=== PATIENT | male | born 1995 | race Caucasian/White ===

== ENCOUNTER 2017-12-17 12:24 | Emergency (ER) | payer BC ==
[2017-12-17 12:53] VITALS: TEMP 99
[2017-12-17] MEDS ORDERED: SODIUM CHLORIDE 0.9% 1000ML 1,000 ML IVS ONE (13:18)
[2017-12-17] MEDS ORDERED: SODIUM CHLORIDE 0.9% (FLUSH) 10 ML SYG IV PRN (13:18)
[2017-12-17] MEDS ORDERED: MECLIZINE HCL 12.5 MG TAB PO ONE (13:19)
--- NOTE | 2017-12-17 13:21 | ED.PDOC ---
History of Present Illness - General Chief Complaint: Syncope/Near Syncope Stated Complaint: DIZZINESS Time Seen by Provider: 12/17/17 12:35 Source: patient - History of Present Illness Initial Comments: PT REPORTS SUDDEN ONSET OF DIZZINESS AND NEAR SYNCOPE WHILE ON A LADDER TODAY. PT ALSO REPORTS SYMPTOMS OF VERTIGO WITH LOOKING UP. PT DENIES PREVIOUS SIMILAR SYMPTOMS AND STATES THAT HE HAS BEEN VOMITING EVERYDAY FOR THE PAST YEAR. PT ALSO REPORTS INTERMITTENT RUQ ABDOMINAL PAIN. Timing/Duration: 1-3 hours Severity: moderate Improving Factors: immobilization Worsening Factors: movement Allergies/Adverse Reactions: Allergies NO KNOWN ALLERGY Allergy (Verified 12/17/17 12:47) Home Medications: Ambulatory Orders Acetaminophen W/ Codeine [Acetaminophen/Codeine 300-30 mg] 1 tab PO Q6-8H PRN # 30 tab 10/05/15 Meclizine HCl [Meclizine 25] 50 mg PO Q6HR PRN 5 Days #30 tab 12/17/17 Ondansetron [Zofran Odt] 8 mg PO TID PRN #20 tab 12/17/17 Sulfamethoxazole-Trimethoprim [Bactrim Ds 800-160 mg] 1 tab PO BID 5 Days #10 tab 12/17/17 Review of Systems - Review of Systems Constitutional: Denies: chills, fever EENTM: Denies: nose congestion, throat pain Respiratory: Denies: cough, short of breath Cardiology: Denies: chest pain, palpitations Gastrointestinal/Abdominal: States: see HPI, nausea, vomiting. Denies: diarrhea Genitourinary: Denies: dysuria, frequency Musculoskeletal: Denies: joint pain, joint swelling Skin: Denies: dryness, lesions Neurological: Denies: headache, numbness Endocrine: States: no symptoms reported Hematologic/Lymphatic: States: no symptoms reported Past Medical History (General) - Patient Medical History Hx Seizures: No Hx Stroke: No Hx Dementia: No Hx Asthma: No Hx of COPD: No Hx Cardiac Disorders: No Hx Congestive Heart Failure: No Hx Pacemaker: No Hx Hypertension: No Hx Thyroid Disease: No Hx Diabetes: No Hx Gastroesophageal Reflux: No Hx Renal Disease: No Hx Cancer: No Hx of HIV: No Hx Hepatitis C: No Hx MRSA: No Surgical History: other - Vaccination History Hx Tetanus, Diphtheria Vaccination: Yes Hx Influenza Vaccination: No Hx Pneumococcal Vaccination: No - Social History Hx Tobacco Use: Yes Hx Alcohol Use: No Hx Substance Use: No Hx Substance Use Treatment: No Hx Depression: No - Female History Patient : No Family Medical History - Family History Mother Family History: Unknown Physical Exam - Physical Exam General Appearance: Alert, Comfortable, No apparent distress, Well Developed, Well Groomed, Well Hydrated, Well Nourished Ears, Nose, Throat: hearing grossly normal Neck: normal inspection Respiratory: lungs clear, normal breath sounds, no respiratory distress, no accessory muscle use Cardiovascular/Chest: regular rate, rhythm, no edema Gastrointestinal/Abdominal: soft, tenderness - RUQ Back Exam: normal inspection Extremity: normal inspection Neurologic: alert, normal mood/affect, oriented x 3 Skin Exam: normal color, warm/dry Progress - Progress Progress: 12/17/17 14:28 PT RESTING COMFORTABLY, REPORTS SIGNIFICANT IMPROVEMENT IN SYMPTOMS AFTER MECLIZINE AND FLUIDS. LABS DISCUSSED. RECOMMEND FOLLOW UP WITH PCP TO FURTHER EVALUATE PTS DAILY VOMITING, AND ABDOMINAL PAIN. - Results/Orders Results/Orders: 12/17/17 12:54 URINE CULTURE W/COLONY COUNT Stat 12/17/17 13:18 IV Care:Saline Lock per Protoc QSHIFT Sodium Chloride 0.9% (Flush) [Saline Flush Syringe] 10 ml IV PRN PRN URINALYSIS Stat 12/17/17 13:30 EKG STAT Laboratory Results - last 24 hr 12/17/17 12/17/17 12/17/17 12:36 12:36 12:36 WBC RBC Hgb Hct MCV MCH MCHC RDW Plt Count MPV Absolute Neuts (auto) Absolute Lymphs (auto) Absolute Monos (auto) Absolute Eos (auto) Absolute Basos (auto) Neutrophils % Lymphocytes % Monocytes % Eosinophils % Basophils % Sodium Cancelled Potassium Cancelled Chloride Cancelled Carbon Dioxide Cancelled Anion Gap BUN Cancelled Creatinine Cancelled BUN/Creatinine Ratio POC Glucose Random Glucose Cancelled Serum Osmolality Calcium Cancelled Phosphorus Cancelled Magnesium Cancelled Ferritin Cancelled Total Bilirubin Direct Bilirubin Indirect Bilirubin AST ALT Alkaline Phosphatase Serum Total Protein Albumin Cancelled Lipase PTH Biointact w/o Ca Cancelled Urine Color Urine Appearance Urine pH Ur Specific [place] Urine Protein Urine Glucose (UA) Urine Ketones Urine Blood Urine Nitrite Urine Bilirubin Urine Urobilinogen Ur Leukocyte Esterase Urine RBC Urine WBC Ur Epithelial Cells Urine Bacteria 12/17/17 12/17/17 12/17/17 12:54 13:16 13:16 WBC 11.9 H RBC 5.29 Hgb 17.3 Hct 49.2 MCV 92.9 MCH 32.7 H MCHC 35.2 RDW 12.3 Plt Count 277 MPV 7.8 Absolute Neuts (auto) 9.70 H Absolute Lymphs (auto) 1.60 Absolute Monos (auto) 0.60 Absolute Eos (auto) 0.10 Absolute Basos (auto) 0.10 Neutrophils % 81.2 H Lymphocytes % 13.0 L Monocytes % 4.8 Eosinophils % 0.5 L Basophils % 0.5 Sodium 138 Potassium 3.3 L Chloride 102 Carbon Dioxide 26 Anion Gap 13.3 BUN 12 Creatinine 0.99 BUN/Creatinine Ratio 12.1 POC Glucose Random Glucose 91 Serum Osmolality 275.0 Calcium 9.8 Phosphorus Magnesium Ferritin Total Bilirubin 0.9 Direct Bilirubin 0.2 Indirect Bilirubin 0.7 AST 21 ALT 28 Alkaline Phosphatase 51 Serum Total Protein 8.5 H Albumin 5.1 Lipase 31 PTH Biointact w/o Ca Urine Color Yellow Urine Appearance Clear Urine pH 5.5 Ur Specific [place] 1.025 Urine Protein 30 Urine Glucose (UA) Negative Urine Ketones 40 H Urine Blood Negative Urine Nitrite Negative Urine Bilirubin Small H Urine Urobilinogen 0.2 Ur Leukocyte Esterase Small H Urine RBC 0 Urine WBC 5-10 H Ur Epithelial Cells 5-10 Urine Bacteria Rare 12/17/17 13:17 WBC RBC Hgb Hct MCV MCH MCHC RDW Plt Count MPV Absolute Neuts (auto) Absolute Lymphs (auto) Absolute Monos (auto) Absolute Eos (auto) Absolute Basos (auto) Neutrophils % Lymphocytes % Monocytes % Eosinophils % Basophils % Sodium Potassium Chloride Carbon Dioxide Anion Gap BUN Creatinine BUN/Creatinine Ratio POC Glucose 90 Random Glucose Serum Osmolality Calcium Phosphorus Magnesium Ferritin Total Bilirubin Direct Bilirubin Indirect Bilirubin AST ALT Alkaline Phosphatase Serum Total Protein Albumin Lipase PTH Biointact w/o Ca Urine Color Urine Appearance Urine pH Ur Specific [place] Urine Protein Urine Glucose (UA) Urine Ketones Urine Blood Urine Nitrite Urine Bilirubin Urine Urobilinogen Ur Leukocyte Esterase Urine RBC Urine WBC Ur Epithelial Cells Urine Bacteria - EKG/XRAY/CT EKG: Sinus - @80BPM, NL INTERVALS, NL AXIS, no ST T wave changes - NO OLD FOR COMPARISON Departure - Departure Clinical Impression: Near syncope, Vertigo, UTI (urinary tract infection) Time of Disposition: 14:31 Disposition: Discharge to Home or Self Care Condition: Good Departure Forms: ED Discharge - Pt. Copy, Patient Portal Self Enrollment Instructions: DI for Urinary Tract Infection (UTI), DI for Benign Paroxysmal Positional Vertigo Diet: bland diet Referrals: Otsi Recinos MD [Primary Care Provider] - 1-5 Days Prescriptions: Meclizine HCl [Meclizine 25] 50 mg PO Q6HR PRN 5 Days #30 tab PRN Reason: Dizziness Ondansetron [Zofran Odt] 8 mg PO TID PRN #20 tab PRN Reason: Nausea/Vomiting Sulfamethoxazole-Trimethoprim [Bactrim Ds 800-160 mg] 1 tab PO BID 5 Days #10 tab Home Medications: Ambulatory Orders Acetaminophen W/ Codeine [Acetaminophen/Codeine 300-30 mg] 1 tab PO Q6-8H PRN # 30 tab 10/05/15 Meclizine HCl [Meclizine 25] 50 mg PO Q6HR PRN 5 Days #30 tab 12/17/17 Ondansetron [Zofran Odt] 8 mg PO TID PRN #20 tab 12/17/17 Sulfamethoxazole-Trimethoprim [Bactrim Ds 800-160 mg] 1 tab PO BID 5 Days #10 tab 12/17/17
[2017-12-17 15:09] VITALS: BP 150/78; O2SAT 95
== END 2017-12-17 14:40 | disposition home or self-care (01) ==
LOC: ER 12:24
DX: N39.0 Urinary tract infection, site not specified (principal); R42 Dizziness and giddiness; R55 Syncope and collapse
CPT/HCPCS: 36415; 36416; 80048; 80076; 81001; 82948; 83690; 85025; 87086; 93005; J7030

== ENCOUNTER 2019-10-28 17:36 | Emergency (ER) | payer SELFPAY ==
[2019-10-28 17:57] VITALS: TEMP 97.7
[2019-10-28] MEDS ORDERED: ONDANSETRON INJ 4 MG/2 ML VIAL IV ONE (17:58)
[2019-10-28] MEDS ORDERED: MORPHINE SULFATE INJ 10 MG/ML VIAL IV ONE ×2 (17:58→18:59)
[2019-10-28] MEDS ORDERED: SODIUM CHLORIDE 0.9% 1000ML 1,000 ML IVS ONE (17:58)
--- NOTE | 2019-10-28 18:03 | ED.PDOC ---
History of Present Illness - General Chief Complaint: Trauma Stated Complaint: Fell playing football, Sternum and L ankle pain Time Seen by Provider: 10/28/19 17:56 Additional Information: Patient with chief complaint of sternal pain and left ankle pain after fall immediately prior to arrival. Patient was playing flag football and twisted his ankle. He felt a pop and fell to the ground landing on his left shoulder. Patient denies any shoulder or clavicle pain but indicates that he immediately felt a sharp pain in the central upper aspect of his chest over his sternum. Patient indicates the pain is approximately 8/10. Patient did not hit his head and denies loss of consciousness, neck pain, back pain, abdominal pain. He is nauseated presently. Patient is otherwise asymptomatic. - History of Present Illness Allergies/Adverse Reactions: Allergies Bee Venom Adverse Reaction (Verified 10/28/19 17:46) Home Medications: Ambulatory Orders Acetaminophen W/ Codeine [Tylenol W/ CODEINE #3] 2 ea PO Q6H PRN #30 10/28/19 Ibuprofen [Motrin] 800 mg PO TID PRN #30 tab 10/28/19 Review of Systems - Review of Systems Constitutional: States: no symptoms reported EENTM: States: no symptoms reported Respiratory: States: no symptoms reported. Denies: cough, orthopnea, short of breath Cardiology: States: no symptoms reported. Denies: chest pain, palpitations Gastrointestinal/Abdominal: States: no symptoms reported, nausea. Denies: abdominal pain Genitourinary: States: no symptoms reported Musculoskeletal: States: see HPI Skin: States: no symptoms reported Neurological: States: no symptoms reported Endocrine: States: no symptoms reported All other Systems: Reviewed and Negative Past Medical History (General) - Patient Medical History Hx Seizures: No Hx Stroke: No Hx Dementia: No Hx Asthma: No Hx of COPD: No Hx Cardiac Disorders: No Hx Congestive Heart Failure: No Hx Pacemaker: No Hx Hypertension: No Hx Thyroid Disease: No Hx Diabetes: No Hx Gastroesophageal Reflux: No Hx Renal Disease: No Hx Cancer: No Hx of HIV: No Hx Hepatitis C: No Hx MRSA: No Surgical History: other - Vaccination History Hx Tetanus, Diphtheria Vaccination: Yes Hx Influenza Vaccination: No Hx Pneumococcal Vaccination: No - Social History Hx Tobacco Use: Yes Hx Alcohol Use: Yes Hx Substance Use: No Hx Substance Use Treatment: No Hx Depression: No - Female History Patient is a Female of Child Bearing Age (10 -59 yrs old): No Patient : No Family Medical History - Family History Mother Family History: Unknown Hx Cardiac Disease: Yes Grandparents Living Status: Hx Family Cancer: Yes Physical Exam - Physical Exam General Appearance: Alert, Anxious, Obvious distress - mild Head Injury: no evidence of injury - scalp is nontender without hematoma Eye Exam: bilateral normal ENT Exam: no evidence of ENT injury, no dental injury Neck Exam: non-tender, full range of motion, normal alignment, normal inspection, other - full nontender range of motion Cardiovascular/Respiratory: no M/R/G, tachycardia, other - normal inspection chest wall. Moderate reproducible tenderness to palpation over the sternum at approximately T2 Gastrointestinal/Abdominal: normal bowel sounds, non tender, soft, no organomegaly Back Exam: normal inspection, no CVA tenderness Extremity Exam: other - left ankle with moderate tenderness to palpation and mild to moderate edema over the lateral malleolus. Negative ecchymoses. Limited range of motion due to pain. Neurologic: no motor/sensory deficits, normal mood/affect Skin Exam: normal color, warm/dry - Barnard Coma Score Best Eye Response (Coretta): (4) open spontaneously Best Verbal Response (Barnard): (5) oriented Best Motor Response (Coretta): (6) obeys commands Progress - Progress Progress: 10/28/19 20:25 Patient's plain film imaging is unremarkable but his CT chest shows a nondisplaced sternal fracture. Patient is feeling much better at this time status post analgesics. He is ambulatory, breathing easily and there is no linda cation for admission for an isolated sternal fracture with no underlying lung or cardiac injury. His EKG is unremarkable.. Will DC with analgesics patient to rest and follow-up with his PCP. Vital signs stable, patient NAD and looks clinically well, and I believe is safe for discharge with outpatient follow-up. Follow-up instructions, discharge instructions and return to ED precautions discussed with patient. Patient voices understanding and willingness to comply with instructions. All radiographic results have been discussed with the patient, and all questions answered. Patient is happy with plan. Departure - Departure Clinical Impression: Sternal fracture Qualifiers: Encounter type: initial encounter Sternal location: body of sternum Fracture type: closed Qualified Code(s): S22.22XA - Fracture of body of sternum, initial encounter for closed fracture Ankle sprain Qualifiers: Encounter type: initial encounter Involved ligament of ankle: unspecified ligament Laterality: left Qualified Code(s): S93.402A - Sprain of unspecified ligament of left ankle, initial encounter Time of Disposition: 20:29 Disposition: Discharge to Home or Self Care Condition: Good Departure Forms: ED Discharge - Pt. Copy, Patient Portal Self Enrollment Instructions: DI for Trauma, Rib Fractures in Adults Prescriptions: Acetaminophen W/ Codeine [Tylenol W/ CODEINE #3] 2 ea PO Q6H PRN #30 PRN Reason: Pain Ibuprofen [Motrin] 800 mg PO TID PRN #30 tab PRN Reason: Pain Home Medications: Ambulatory Orders Acetaminophen W/ Codeine [Tylenol W/ CODEINE #3] 2 ea PO Q6H PRN #30 10/28/19 Ibuprofen [Motrin] 800 mg PO TID PRN #30 tab 10/28/19
--- NOTE | 2019-10-28 19:05 | RAD ---
EXAM DESCRIPTION: Ankle,Left 3 Views (accession [id number]), Foot,Left 3 Views (accession [id number]) CLINICAL HISTORY: 24 years Male, sprain COMPARISON: None. FINDINGS: No fracture or dislocation of the left ankle and foot. There is no smooth. Bone mineralization is normal. Joint spaces are preserved. Lateral ankle swelling and joint effusion. IMPRESSION: Soft tissue swelling and joint effusion. No displaced fracture. Dedicated CT or MR examination is recommended. Electronically signed by: Roddy Barboza DO 10/28/2019 7:03 PM [facility]
--- NOTE | 2019-10-28 19:05 | RAD ---
EXAM DESCRIPTION: Ankle,Left 3 Views (accession [id number]), Foot,Left 3 Views (accession [id number]) CLINICAL HISTORY: 24 years Male, sprain COMPARISON: None. FINDINGS: No fracture or dislocation of the left ankle and foot. There is no smooth. Bone mineralization is normal. Joint spaces are preserved. Lateral ankle swelling and joint effusion. IMPRESSION: Soft tissue swelling and joint effusion. No displaced fracture. Dedicated CT or MR examination is recommended. Electronically signed by: Roddy Barboza DO 10/28/2019 7:[address] [facility]
--- NOTE | 2019-10-28 19:06 | RAD ---
EXAM DESCRIPTION: XR Chest,2 Views (accession [id number]), XR Sternum (accession [id number]) CLINICAL HISTORY: 24 years Male sternal pain/ trauma TECHNIQUE: Two views of the chest and two views of the sternum. COMPARISON: No prior exams provided for comparison. FINDINGS: The lungs are clear without focal consolidation, effusion, or pneumothorax. The cardiomediastinal silhouette and central pulmonary vasculature are normal. No acute fracture in the chest. In particular, the sternum appears normal. IMPRESSION: No acute cardiopulmonary abnormalities. Normal sternum. Electronically signed by: Tierney Rico MD 10/28/2019 7:05 PM [facility]
--- NOTE | 2019-10-28 19:07 | RAD ---
EXAM DESCRIPTION: XR Chest,2 Views (accession [id number]), XR Sternum (accession [id number]) CLINICAL HISTORY: 24 years Male sternal pain/ trauma TECHNIQUE: Two views of the chest and two views of the sternum. COMPARISON: No prior exams provided for comparison. FINDINGS: The lungs are clear without focal consolidation, effusion, or pneumothorax. The cardiomediastinal silhouette and central pulmonary vasculature are normal. No acute fracture in the chest. In particular, the sternum appears normal. IMPRESSION: No acute cardiopulmonary abnormalities. Normal sternum. Electronically signed by: Tierney Rico MD 10/28/2019 7:05 PM [facility]
--- NOTE | 2019-10-28 19:54 | CT ---
EXAM: CT Chest With Intravenous Contrast CLINICAL HISTORY: trauma/ sternal pain TECHNIQUE: Axial computed tomography images of the chest with intravenous contrast. Sagittal and coronal reformatted images were created and reviewed. This CT exam was performed using one or more of the following dose reduction techniques: automated exposure control, adjustment of the mA and/or kV according to patient size, and/or use of iterative reconstruction technique. COMPARISON: No relevant prior studies available. FINDINGS: Limitations: None. Lungs: Incidental 3 mm right lower lobe pulmonary nodule image 51/121. Lungs otherwise clear. Pleural space: Unremarkable. No pneumothorax. No significant effusion. Heart: Unremarkable. No cardiomegaly. No significant pericardial effusion. Bones/joints: There is a linear fracture through the left paramedian sternum with mild cortical offset. No dislocation. Soft tissues: Unremarkable. Vasculature: Unremarkable. No thoracic aortic aneurysm. Lymph nodes: Unremarkable. No enlarged lymph nodes. Other findings: There is no retrosternal hematoma. IMPRESSION: 1. There is a linear fracture through the left paramedian sternum with mild cortical offset. 2. No other traumatic changes noted. 3. Incidental 3 mm right lower lobe pulmonary. Fleischner Society Guidelines (MacMahon, et al. Radiology 2017; 284(1):228-43) suggest the following. For low-risk patients, no follow-up is necessary. For high-risk patients (smoking history or other known risk factors) an optional chest CT at 12 months could be performed. Electronically signed by: Lida Cadena MD 10/28/2019 7:53 PM [facility]
[2019-10-28 20:06] VITALS: BP 149/90; O2SAT 97
[2019-10-28] MEDS ORDERED: HYDROcodone 10MG/APAP 325MG 1 EA TAB PO ONE (20:33)
== END 2019-10-28 20:38 | disposition home or self-care (01) ==
LOC: ER 17:36
DX: S22.22XA Fracture of body of sternum, initial encounter for closed fracture (principal); S93.402A Sprain of unspecified ligament of left ankle, initial encounter; Z87.891 Personal history of nicotine dependence; W18.30XA Fall on same level, unspecified, initial encounter; X50.9XXA Other and unspecified overexertion or strenuous movements or postures, initial encounter; Y93.62 Activity, american flag or touch football; Y92.9 Unspecified place or not applicable
CPT/HCPCS: 71046; 71120; 71260; 73610; 73630; 93005; J2270; J2405; J7030